=== PATIENT | female | born 1990 | race African-American/Black ===

== ENCOUNTER 2016-10-29 12:02 | Emergency (ER) | payer OTHER ==
[~2016-10-29] VITALS: Ht 152.4 cm; Wt 69.7 kg
[2016-10-29 12:27] VITALS: BP 109/64
== END 2016-10-29 18:43 | disposition left against medical advice (07) ==
LOC: ER 18:12
DX: M54.9 Dorsalgia, unspecified (principal); Z53.21 Procedure and treatment not carried out due to patient leaving prior to being seen by health care provider